=== PATIENT | male | born 1955 | race Caucasian/White ===

== ENCOUNTER → 2021-07-24 | Outpatient (CLI) | payer OTHER ==
[~2021-07-24] MED LIST: ASPI325T OR; GLUC500T OR; NOVOLOG100 MG/ML SC; No Historical Meds; PRIN5TAB OR
--- NOTE | 2021-08-01 12:36 | REP ---
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 Right-sided neck masses. Question lymphoma. 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 COMPARISON: Comparison CT study June 07, 2021 is retrieved from [facility]. TECHNIQUE: Fifty-one minutes following the intravenous injection of a 8.97 mCi dose of F-18 FDG, three-dimensional PET scintigraphy is acquired from the skull base to the proximal thighs. Triplanar noncontrast CT scanning is acquired through the same anatomic range for attenuation correction, and image registration with scan parameters optimized to minimize radiation exposure to the patient. PET scintigraphy and CT datasets were fused and displayed on a workstation with multiplanar and projection display capability. FINDINGS: In the head and neck, there is abnormal hypermetabolic uptake in the right tonsillar and peritonsillar soft tissues with maximum standard uptake value 11.96. There is soft tissue masslike fullness here. Abnormal uptake extends cranially in the prevertebral soft tissues at the level of C1-2. There is also hypermetabolic adenopathy with maximum standard uptake values in bulky right neck adenopathy of 9.87 and 10.11. No left cervical adenopathy is appreciated. No abnormal hypermetabolic uptake is seen within the thorax. No abnormal abdominal or pelvic hypermetabolic uptake is seen. IMPRESSION: Hypermetabolic mass in the right tonsillar and peritonsillar soft tissues with right neck hypermetabolic lymphadenopathy. <Electronically signed by Keith Newman > 08/01/21 [id number]
== END ==
LOC: M PLARAD 10:03
PROVIDERS: ATTEND Internal Medicine
DX: R93.5 Abnormal findings on diagnostic imaging of other abdominal regions, including retroperitoneum (principal)
CPT/HCPCS: 78815; A9552

== ENCOUNTER → 2021-09-25 | Outpatient (CLI) | payer OTHER ==
[~2021-09-25] MED LIST changes: +BUPR150T12 PO; +LIDOCAINE 1% MDV 20ML VIAL As Ordered ONE; +MIDAZOLAM INJ 2MG/2ML VIAL (J2250 PER 1MG) As Ordered ONE; +MULT-90 PO; +NS 1,000 ML IV SCH; +SIMV10TA21 PO; +SIMV40TA20 PO; +ceFAZolin 2 GM/D5W 50 ML IV BAG (J0690 PER 500MG) As Ordered ONE; +ceFAZolin SOD 2 GM in IV 1 EA IV ONE; +diphenhydrAMINE 50MG/ML VIAL (J1200) As Ordered ONE; +fentaNYL 100 MCG/2 ML INJECTION (J3010) As Ordered ONE
--- NOTE | 2021-09-25 07:56 | IRHP ---
[facility] IR Pre-Procedure H & P General Date of Service: Sep 25, 2021 Procedure: Same Day Surgery Interval History and Physical I have seen the patient and reviewed last H & P performed within 30 days. There is no significant interval change. History of Present Illness Chief Complaint The patient is a 66-year-old male admitted with a reason for visit of Tongue Ca. PRE-PROCEDURE DIAGNOSIS: Tongue cancer HEART: Normal rate. LUNGS: Normal breathing at rest. ASA Classification ASA Classification: II-Mild systemic disease Mallampati Score: II NPO: Yes Problems with prior sedation: No Obstructive Sleep Apnea: Yes Plan moderate sedation Allergies Coded Allergies: No Known Drug Allergies (Verified Allergy, Unknown, 09/25/21) Home Medications Scheduled Insulin Human Lispro (Novolog), SC AC, (Reported) Insulin Human Lispro (Novolog), SC QHS, (Reported) Lisinopril (Zestril), 5 MG OR DAILY, (Reported) Metformin HCl (Glucophage), 500 MG OR WM, (Reported) Simvastatin (Simvastatin), 1 TAB PO QPM, (Reported) Miscellaneous Medications Multivitamin (Multivitamin), 1 EACH PO, (Reported) Discontinued Medications Aspirin (Aspirin), 325 MG OR DAILY, (Reported) Discontinued Reason: Pt states not taking VS, I&O, 24H, Fishbone Vital Signs/I&O Vital Signs Date Time Temp Pulse Resp B/P (MAP) Pulse Ox O2 Delivery O2 Flow Rate FiO2 09/25/21 07:47 97.7 82 18 99 Room Air AYAN PAYNE MD Sep 25, 2021 07:56
[2021-09-25 10:30] VITALS: BP 132/76
--- NOTE | 2021-09-28 13:00 | IRPON ---
IR Postoperative Note Date Of Procedure: Sep 25, 2021 Time Of Procedure: 16:00 IR Postoperative Note IR Ultrasound and fluoroscopy guided port placement IR Ultrasound of the neck. IR Moderate sedation. Clinical indication: Head and neck cancer. Physician: Dr. Sanchez. Procedure: The patient was advised of the benefits, risks, and alternatives of the procedure and informed consent was obtained. A time-out was performed with verification of the patient's name, MRN, site of procedure and type of procedure to be performed. The patient was positioned in the supine position on the angiographic table. The site was prepped and draped in the usual sterile fashion. Moderate sedation was performed by the physician including the presence of an independent trained RN who assisted and monitored the patient's level of consciousness and physiologic status. Following the administration of fentanyl and Versed , the physician spent 45 minutes of continuous face to face time with the patient. Ultrasound of the neck reveals a patent and compressible right internal jugular vein. A unattended ground sensor specialist radiograph reveals no gross abnormality. The neck and anterior chest wall were anesthetized with lidocaine. The right internal jugular vein was accessed using a microintroducer needle under ultrasound guidance, via a lateral approach. An 018 wire was advanced into the superior vena cava, the needle was removed and a microsheath was placed. An Amplatz wire was then passed into the inferior vena cava. An incision at the internal jugular vein access site and anterior chest wall were made using a scalpel. An incision was made at the anterior chest wall. A small pocket was created using a combination of blunt and sharp dissection. A tunneling device was then used to pass the catheter from the pocket to the neck puncture site. An 8- [place] [employer] Smart power port was then positioned in the pocket. The catheter was then measured and cut. The introducer sheath was exchanged for a peel-away sheath. The catheter was passed through the peel-away sheath into the internal jugular vein and the peel-away sheath was removed. The port tip was positioned at the cavoatrial junction. The port was then accessed with a Chase needle. The port flushes and aspirates well. The puncture site in the neck was closed. The chest wall incision was then closed with 2-0 Vicryl and 4-0 Monocryl. Glue and Steri- Strips were applied. A sterile dressing was then applied. The patient tolerated the procedure well and was returned to the PRU in stable condition. Estimated blood loss: <5 ml. Complications: None. Conclusion: 1. Successful placement of an 8-[place] [employer] Smart power port via the right internal jugular vein. The port is ready for immediate use. 2. Patient to follow up in IR clinic in 2 weeks. Thank you for this referral. AYAN SANCHEZ MD Sep 28, 2021 13:00
== END ==
LOC: M IRPRO 06:47
PROVIDERS: ATTEND Specialist
DX: C02.9 Malignant neoplasm of tongue, unspecified (principal); Z79.4 Long term (current) use of insulin; Z79.84 Long term (current) use of oral hypoglycemic drugs; Z79.899 Other long term (current) drug therapy
CPT/HCPCS: 36561; 99152; 99153; C1769; C1788; C1894; J0690; J1200; J1642; J1644; J2250; J3010

== ENCOUNTER → 2021-09-29 | Outpatient (CLI) | payer OTHER ==
[~2021-09-29] MED LIST changes: -LIDOCAINE 1% MDV 20ML VIAL As Ordered ONE; -MIDAZOLAM INJ 2MG/2ML VIAL (J2250 PER 1MG) As Ordered ONE; -NS 1,000 ML IV SCH; -ceFAZolin 2 GM/D5W 50 ML IV BAG (J0690 PER 500MG) As Ordered ONE; -ceFAZolin SOD 2 GM in IV 1 EA IV ONE; -diphenhydrAMINE 50MG/ML VIAL (J1200) As Ordered ONE; -fentaNYL 100 MCG/2 ML INJECTION (J3010) As Ordered ONE
--- NOTE | 2021-09-29 15:21 | RADONC.CN ---
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 He is seen today for consideration of chemoradiation. Diagnosis/Treatment History Oncologic History Late 2019: Noted painless right neck swelling, gradually increased in size. 06/21/21: Underwent biopsy ([facility]) of the right neck mass which showed SCC, p16+ 07/24/21: PET-CT revealing multiple right sided RP, level IB, II, III LN (largest ~ 5 cm in greatest dimension) and a right tonsillar fossa mass 09/08/21: Dental extractions Interval History Here with his supportive daughter, works @ [employer]. Wants to return to work. No dysphagia or oral pain. Has lost ~15 lbs since last year. Appetite and energy levels good. Eager to start treatment. Wants to quit smoking. Tried chantix previously, did not like it. Past Medical History: Arthritis DMII HPL HTN ANSHUL Family History: No family cancer history Social History: Current 1 ppd smoker for 20 years Does not drink Allergies / Meds Allergies: Coded Allergies: No Known Drug Allergies (Verified Allergy, Unknown, 09/25/21) Home Meds Reported Medications Simvastatin (Simvastatin) 40 Mg Tablet, 40 MG PO DAILY, TAB 09/29/21 Multivitamin (Multivitamin) 1 Each Tablet, 1 EACH PO, TAB 09/18/21 Lisinopril (Zestril) 5 Mg Tab, 10 MG OR DAILY 07/16/12 Metformin HCl (Glucophage) 500 Mg Tab, 500 MG OR BID two tabs bid 07/16/12 Insulin Human Lispro (Novolog) Inj, SC QHS 07/16/12 Insulin Human Lispro (Novolog) Inj, SC AC 07/16/12 Discontinued Reported Medications Simvastatin (Simvastatin) 10 Mg Tablet, 1 TAB PO QPM for 30 Days, #30 TAB 09/18/21 Review of Systems Constitutional: Reports: Weight Loss; Denies: Fatigue Eyes: Denies: Pain HEENT: Reports: Post Nasal Drip; Denies: Head Aches, Sore Throat Skin: Denies: Rash Pulmonary: Denies: Dyspnea, Cough Cardiovascular: Denies: Chest Pain Gastrointestinal: Denies: Abdominal Pain Endocrine: Denies: Cold Intolerance Musculoskeletal: Reports: Back pain; Denies: Neck pain Neurological: Denies: Weakness, Numbness Psych: Reports: Mood Normal Vital Signs Wt 238 lbs T 96.6 P 101 RR 19 BP 148/84 O2 99% Pain 0 Fatigue 0 General Exam: Alert, Cooperative, No Acute Distress Eye Exam: PERRLA, EOMI ENT EXAM: Other ENT (He is edentulous, no gingival abnormalities. Oral mucosa pink and well hydrated. There is a palpable level IB node in the FOM on bimanual exam. There are no lesions in the oral cavity otherwise. There is a visible mass in the right tonsillar fossa with superficial ulceration, the mass extends inferiorly to the right BOT, it is firm and nontender. The left tonsillar fossa is WNL. The soft palate does not appear involved by the tumor. Gag reflex intact. No trismus. There is a large hard alon conglomerate in right level II/III. No overlying skin changes. There are no palpable left-sided LN. There is preserved laryngeal crepitus and elevation with swallowing. No supraclavicular adenopathy. ) Chest Exam: Clear to auscultation, Normal air movement Heart Exam: Rate Normal Abdomen Exam: Soft Extremity Exam: Negative: Edema Skin Exam: Nl turgor and temperature Neuro Exam: Normal Gait, Normal Speech, Cranial Nerves 3-12 NL Psych Exam: Mental status NL Other Physical Findings Laryngoscopy: Anthony provided verbal consent to be scoped. Cetacaine was sprayed in the right nostril for anesthetic. The scope was introduced and passed through clear mucus, the patient blew his nose and the scope was reintroduced and passed easily to the right nasopharynx, where on the lateral wall there was significant swelling and overlying hyperemia of the mucosa, consistent with a Rouvier's node. Posterior to the node there was a large visible mass extending superiorly to the adenoid pad, this was followed inferiorly to its origin in the tonsillar fossa. From there the mass extends inferiorly to the region of the superiormost portion of the right BOT but not adherent to or involving the BOT. No ulceration or bleeding from the mass was observed. The left BOT and the valleculae are clear. The supraglottis and epiglottis are without lesions. The pyriform sinuses are patent and without lesions the larynx is freely mobile without lesions. The scope was withdrawn and the patient tolerated the procedure well. Diagnostic and Laboratory Diagnostic Review Radiologic images, relevant labs and pathology reports were personally reviewed and discussed with Mr. Overton. Assessment and Plan Impression Mr. Overton is a 66 year old male current smoker with a right tonsil SCC [id number] p16+ stage II. He is seen today for consideration of chemoradiation. Stage Right tonsil SCC [id number] p16+ stage II Performance Status ECOG 1 Plan We had an extensive discussion with Mr. Overton regarding the diagnosis at hand and available therapeutic options. I reviewed his pathology and imaging with him. He has p16+ disease which is associated with a favorable prognosis with chemoradiation compared to p16- cancers. His exam reveals a >4 cm primary lesions extending superiorly to the nasophar ynx, there was also a large lesion in the lateral nasopharynx which correlates with a Rouvier's node, this is visible on the PET-CT. Fortunately he has no swallowing symptoms at this time and is eating at will. For treatment I recommend 70 Gy in 35 fractions with concurrent weekly cisplatin, which Dr. Gallardo has arranged. I explained that as his alon burden and primary may decrease in size during treatment we may perform and interim replan to spare skin and uninvolved mucosa. We discussed the logistics of receiving radiation therapy in detail including the need for a 1-time planning session. This will occur on 10/02/21. We discussed the side effects of treatment including, pain, weight loss, dehydration, dry mouth, loss of taste, ORN, trismus, hypothyroidism. I do not recommend a PEG tube initially. I think he will be able to support himself nutritionally without one. After discussing the risks, benefits and alternatives to radiation therapy, Mr. Overton was amenable to pursuing radiotherapy. All questions were answered to the patient's satisfaction. I also recommended he stop smoking, we spent 3 minutes discussing quit aids and he accepted a wellbutrin prescription and will set a quit date. We instructed the patient that if there were any questions,concerns or changes in clinical status in the interim to contact us. Recommendations 70 Gy in 35 fractions with VMAT Simulation 10/02/21, treatment to start the following week Weekly chemotherapy per Dr. Gallardo Wellbutrin 150 mg daily for smoking cessation Billing Statement Total time of [61] minutes was spent preparing for the visit [4], obtaining HPI [10], examining the patient [8], reviewing diagnostic tests [6], discussing management options [22], coordinating care [2], and writing this note [9]. KANDACE MICHEL MD Sep 29, 2021 15:21
== END ==
LOC: M ONCR 12:52
PROVIDERS: ATTEND General Practice
DX: C09.9 Malignant neoplasm of tonsil, unspecified (principal); F17.210 Nicotine dependence, cigarettes, uncomplicated; Z79.4 Long term (current) use of insulin; Z79.84 Long term (current) use of oral hypoglycemic drugs; Z79.899 Other long term (current) drug therapy
CPT/HCPCS: 31575; G0463

== ENCOUNTER → 2021-10-31 | Outpatient (RCR) | payer OTHER ==
[~2021-10-31] MED LIST changes: +FLUC100T3 PO; +INSUH10VL SC; +LANTINJ4 SC; +LISI5TAB11 PO; +MAGICMW PO; +MAGN400C2 PO; +METF-839 PO; +ONDA8TAB8 PO; +POTA-151 PO; +PROC10TA5 PO
== END ==
LOC: M ONCR 10-02 08:31
PROVIDERS: ATTEND General Practice
DX: C09.0 Malignant neoplasm of tonsillar fossa (principal)

== ENCOUNTER 2021-11-30 11:15 | Outpatient (RCR) | payer OTHER ==
[~2021-11-30 11:15] MED LIST changes: +FLUC100T PO; -FLUC100T3 PO; +LISI-898 PO; -LISI5TAB11 PO; -POTA-151 PO; +POTA20TA6 PO; +PROC10TA4 PO; -PROC10TA5 PO
== END 2021-12-01 ==
LOC: M ONCR 11:15
PROVIDERS: ATTEND General Practice
DX: C09.0 Malignant neoplasm of tonsillar fossa (principal)

== ENCOUNTER 2021-12-08 10:47 | Outpatient (RCR) | payer OTHER ==
[~2021-12-08 10:47] MED LIST changes: -FLUC100T PO; +FLUC100T3 PO; -LISI-898 PO; +LISI5TAB11 PO; +POTA-151 PO; -POTA20TA6 PO; -PROC10TA4 PO; +PROC10TA5 PO
== END 2022-01-01 ==
LOC: M ONCR 10:47
PROVIDERS: ATTEND General Practice
DX: C09.0 Malignant neoplasm of tonsillar fossa (principal)

== ENCOUNTER → 2022-01-03 | Outpatient (CLI) | payer OTHER | LOC: M ONCR 09:11 | PROVIDERS: ATTEND General Practice | DX: C09.0 Malignant neoplasm of tonsillar fossa (principal); Z92.3 Personal history of irradiation ==

== ENCOUNTER → 2022-01-24 | Outpatient (CLI) | payer OTHER | LOC: M ONCR 09:39 | PROVIDERS: ATTEND General Practice | DX: C09.0 Malignant neoplasm of tonsillar fossa (principal); L59.8 Other specified disorders of the skin and subcutaneous tissue related to radiation ==

== ENCOUNTER → 2022-03-19 | Outpatient (CLI) | payer OTHER | LOC: M PLARAD 07:40 | PROVIDERS: ATTEND General Practice | DX: C09.0 Malignant neoplasm of tonsillar fossa (principal) | CPT/HCPCS: 78815; A9552 ==

== ENCOUNTER → 2022-03-28 | Outpatient (CLI) | payer OTHER | LOC: M ONCR 09:23 | PROVIDERS: ATTEND General Practice | DX: C09.0 Malignant neoplasm of tonsillar fossa (principal); F17.210 Nicotine dependence, cigarettes, uncomplicated; R63.4 Abnormal weight loss; Z92.21 Personal history of antineoplastic chemotherapy; Z92.3 Personal history of irradiation | CPT/HCPCS: 31575; G0463 ==

== ENCOUNTER → 2022-04-26 | Outpatient (CLI) | payer OTHER | LOC: M ONCR 12:41 | PROVIDERS: ATTEND General Practice | DX: C09.0 Malignant neoplasm of tonsillar fossa (principal); L59.8 Other specified disorders of the skin and subcutaneous tissue related to radiation ==

== ENCOUNTER → 2022-08-03 | Outpatient (CLI) | payer OTHER ==
[2022-08-03 13:04] LABS: FREE T4 0.94 NG/DL (0.76-1.46); THYROID STIMULATING HORMONE 1.41 uIU/ML (0.358-3.740)
== END ==
LOC: M ONCR 10:56
PROVIDERS: ATTEND General Practice
DX: Z08 Encounter for follow-up examination after completed treatment for malignant neoplasm (principal); C09.0 Malignant neoplasm of tonsillar fossa; F17.210 Nicotine dependence, cigarettes, uncomplicated; Z92.21 Personal history of antineoplastic chemotherapy; Z92.3 Personal history of irradiation; Z79.899 Other long term (current) drug therapy; H54.7 Unspecified visual loss
CPT/HCPCS: 31575; 84439; 84443; G0463

== ENCOUNTER → 2022-11-07 | Outpatient (CLI) | payer OTHER | LOC: M ONCR 11:18 | PROVIDERS: ATTEND General Practice | DX: Z08 Encounter for follow-up examination after completed treatment for malignant neoplasm (principal); Z85.818 Personal history of malignant neoplasm of other sites of lip, oral cavity, and pharynx; F17.210 Nicotine dependence, cigarettes, uncomplicated; Z79.899 Other long term (current) drug therapy; Z92.21 Personal history of antineoplastic chemotherapy; Z92.3 Personal history of irradiation | CPT/HCPCS: 31575; G0463 ==

== ENCOUNTER → 2023-02-06 | Outpatient (CLI) | payer MEDICARE, OTHER | LOC: M ONCR 10:08 | PROVIDERS: ATTEND General Practice | DX: C09.0 Malignant neoplasm of tonsillar fossa (principal); F17.210 Nicotine dependence, cigarettes, uncomplicated; Z79.899 Other long term (current) drug therapy; Z92.21 Personal history of antineoplastic chemotherapy; Z92.3 Personal history of irradiation | CPT/HCPCS: 31575; 99406; G0463 ==

== ENCOUNTER → 2024-03-27 | Outpatient (CLI) | payer MEDICARE, OTHER ==
[~2024-03-27] MED LIST changes: +CEFU1TAB22; +FOLI1TAB11 PO; +IBUP-1022 PO; +IBUP200C25 PO; +LEVO50TA5; +LORA2CON5 PO; +MORP1SOL5 PO; +ONDA-284 PO; -ONDA8TAB8 PO; +THIA100T7 PO; +WELLTAB38 PO; +ZITHTAB
== END ==
LOC: M ONCR 13:16
PROVIDERS: ATTEND General Practice
DX: C09.0 Malignant neoplasm of tonsillar fossa (principal); R84.9 Unspecified abnormal finding in specimens from respiratory organs and thorax; R59.9 Enlarged lymph nodes, unspecified; R93.2 Abnormal findings on diagnostic imaging of liver and biliary tract; R53.81 Other malaise; R62.7 Adult failure to thrive; L60.0 Ingrowing nail; F17.210 Nicotine dependence, cigarettes, uncomplicated; F10.20 Alcohol dependence, uncomplicated; R29.6 Repeated falls; Z71.2 Person consulting for explanation of examination or test findings; Z92.21 Personal history of antineoplastic chemotherapy; Z92.3 Personal history of irradiation

== ENCOUNTER → 2024-04-17 | Outpatient (CLI) | payer OTHER ==
[~2024-04-17] MED LIST changes: +GASTROGRAFIN SOLUTION 30ML As Ordered ONE; -ONDA-284 PO; +ONDA8TAB8 PO
== END ==
LOC: M RAD 08:40
PROVIDERS: ATTEND General Practice
DX: C09.0 Malignant neoplasm of tonsillar fossa (principal)
CPT/HCPCS: 74176; Q9963

== ENCOUNTER → 2024-04-21 | Outpatient (CLI) | payer MEDICARE, OTHER ==
[~2024-04-21] MED LIST changes: -GASTROGRAFIN SOLUTION 30ML As Ordered ONE
== END ==
LOC: M ONCR 12:47
PROVIDERS: ATTEND General Practice
DX: C09.0 Malignant neoplasm of tonsillar fossa (principal); C79.51 Secondary malignant neoplasm of bone; G89.3 Neoplasm related pain (acute) (chronic); R93.2 Abnormal findings on diagnostic imaging of liver and biliary tract; R59.9 Enlarged lymph nodes, unspecified; R53.81 Other malaise; F17.210 Nicotine dependence, cigarettes, uncomplicated; F41.9 Anxiety disorder, unspecified; Z71.2 Person consulting for explanation of examination or test findings; Z79.1 Long term (current) use of non-steroidal anti-inflammatories (NSAID); Z79.890 Hormone replacement therapy; Z79.891 Long term (current) use of opiate analgesic; Z92.21 Personal history of antineoplastic chemotherapy; Z92.3 Personal history of irradiation